=== PATIENT | male | born 1950 ===

== ENCOUNTER 2020-12-19 10:20 | Inpatient (IN) ==
[~2020-12-19 10:20] MED LIST: Buffered Lidocaine 1% SYRIN 1 ml INTRADERM ONE; Lactated Ringers 1000 ml BAG 1,000 ML IV SCH; Lidocaine 1% MPF 5 ML VIAL ONE
[2020-12-19] MEDS ORDERED: ceFAZolin 2 GM PREMIX 2 GM/50 ML BAG ONE (10:42)
[2020-12-19] MEDS ORDERED: Ropivacaine 5 MG/ML 20 ML VIAL 0.5% (100 MG) ONE (12:24)
[2020-12-19 12:49] LABS: INR 1.12 (0.86-1.15)
[2020-12-19] MEDS ORDERED: Phenylephrine 40 mcg/mL 10mL (400mcg) SYRINGE ONE (12:52)
[2020-12-19] MEDS ORDERED: Bupivacaine 0.5% SDV PF 30ML VIAL ONE ×2 (12:52→12:59)
[2020-12-19] MEDS ORDERED: Midazolam 2 mg/2 ml VIAL 1 mg/ml 2 ml VIAL (2 mg) ONE (12:58)
[2020-12-19] MEDS ORDERED: Dexamethasone IV 4 MG/ML VIAL 1 ml VIAL ONE ×2 (12:58→16:45)
[2020-12-19] MEDS ORDERED: fentaNYL 100 mcg/2 ml 50 MCG/ML VIAL ONE ×2 (13:23→14:54)
[2020-12-19] MEDS ORDERED: Rocuronium 50 mg VIAL 10 mg/ml 5 ml VIAL (50 mg) ONE ×2 (13:35→14:48)
[2020-12-19] MEDS ORDERED: HYDROmorphone 1 MG/1 ML SYRINGE ONE ×3 (14:04→17:33)
[2020-12-19] MEDS ORDERED: Naloxone 0.4 mg VIAL 0.4 mg/ml 1 ml VIAL IV PRN (14:29)
[2020-12-19] MEDS ORDERED: HYDROmorphone 1 MG/1 ML SYRINGE IV PRN (14:29)
[2020-12-19] MEDS ORDERED: diPHENhydraMINE IV 50 MG/ML 1 ml VIAL (BENADRYL) IV PRN ×2 (14:29→16:34)
[2020-12-19] MEDS ORDERED: DiMENhydriNATE IV 50 mg/ml 1 ml VIAL IV PUSH PRN (14:29)
[2020-12-19] MEDS ORDERED: Ondansetron 4 mg VIAL 2 MG/ML 2 ml VIAL ONE (15:21)
[2020-12-19] MEDS ORDERED: Ondansetron 4 mg VIAL 2 MG/ML 2 ml VIAL IV PRN (16:34)
[2020-12-19] MEDS ORDERED: Ondansetron ODT 4 mg TAB 4 MG TAB PO PRN (16:34)
[2020-12-19] MEDS ORDERED: Magnesium Hydroxide LIQ 30 ML UDC PO PRN (16:34)
[2020-12-19] MEDS ORDERED: Lactulose 30 ml UDC PO PRN (16:34)
[2020-12-19] MEDS ORDERED: diPHENhydraMINE 25 mg TAB PO PRN (16:34)
[2020-12-19] MEDS ORDERED: Morphine 2 MG/ML SYRINGE IV PRN (16:34)
[2020-12-19] MEDS ORDERED: Lidocaine 2% PF 5 ML VIAL ONE (16:44)
[2020-12-19] MEDS: Lactated Ringers 1000 ml BAG 1,000 ML IV SCH (19:42)
[2020-12-19] MEDS: Magnesium Hydroxide LIQ 30 ML UDC PO SCH (20:23)
[2020-12-19] MEDS: ceFAZolin 1 GM ADVAN 1 GM in NS 0.9% 50 ML 50 ML IVPB SCH (22:20)
[2020-12-20] MEDS: Lactated Ringers 1000 ml BAG 1,000 ML IV SCH (05:21)
[2020-12-20] MEDS: ceFAZolin 1 GM ADVAN 1 GM in NS 0.9% 50 ML 50 ML IVPB SCH ×2 (05:28→13:48)
[2020-12-20 06:20] LABS: Hematocrit 37 % (42-52); Hemoglobin 12.5 g/dL (14.0-18.0); Mean Platelet Volume 8.9 fL (7.4-10.4); Platelet Count 205 10^3/uL (150-450)
[2020-12-20 06:36] LABS: Calcium 8.7 mg/dL (8.6-10.3); EGFR African American 100.4 (>60); EGFR Non-African American 82.9 (>60); Potassium 4.4 mmol/L (3.5-5.0)
[2020-12-20] MEDS: Magnesium Hydroxide LIQ 30 ML UDC PO SCH (08:14)
[2020-12-20] MEDS ORDERED: Vitamin THERAPEUTIC TAB PO SCH (09:00)
[2020-12-20 10:54] VITALS: BP 111/69
== END 2020-12-20 14:55 | disposition home or self-care (01) | DRG 302 ==
LOC: AA 10:20 → SSU 18:50
PROVIDERS: ADMIT Orthopaedic Surgery Adult Reconstructive Orthopaedic Surgery; ATTEND Orthopaedic Surgery Adult Reconstructive Orthopaedic Surgery